=== PATIENT | female | born 1990 | race Caucasian/White ===

== ENCOUNTER 2018-05-21 00:22 | Emergency (ER) | payer MEDICAID ==
[~2018-05-21] VITALS: Ht 154.9 cm; Wt 54.3 kg
[~2018-05-21 00:22] MED LIST: DRON10CA PO; KLONIPIN PO
[2018-05-21] MEDS ORDERED: MULT-658 PO (00:45)
[2018-05-21 01:34] LABS: MEAN CORPUSCULAR HEMOGLOBIN 28.8 pg (27.0-34.8); MEAN CORPUSCULAR HGB CONC 33.4 g/dL (32.4-35.8); MEAN CORPUSCULAR VOLUME 86.3 fL (80-100); MEAN PLATELET VOLUME 11.1 fL (7.4-10.4); PLATELET COUNT 177 x10^3/uL (130-400); RED CELL DISTRIBUTION WIDTH 16.1 % (9.6-15.2)
[2018-05-21 01:42] LABS: ALANINE AMINOTRANSFERASE 27 U/L (12-78); ALBUMIN 3.7 g/dL (3.4-5.0); ANION GAP 4 mmol/L (5-15); CALCIUM 8.6 mg/dL (8.5-10.1); CHLORIDE 109 mmol/L (98-107); CREATININE 0.98 mg/dL (0.55-1.02)
--- NOTE | 2018-05-21 01:42 | NUR ---
LUNCH RN: PT PROVIDED WITH URINE CUP, ENCOURAGED TO GO TO RESTROOM, PT STATES "I JUST WENT BEFORE I GOT HERE". PT EDUCATED ON THE NEED FOR THE TEST AND HOW LONG IT TAKES TO GET THE RESULTS. WILL RECHECK IN A FEW MINUTES
[2018-05-21 01:44] LABS: ALKALINE PHOSPHATASE 81 U/L (45-117); BILIRUBIN,TOTAL 0.2 mg/dL (0.2-1.0); TOTAL PROTEIN 7.2 g/dL (6.4-8.2)
--- NOTE | 2018-05-21 01:52 | NUR ---
need iv for CT
--- NOTE | 2018-05-21 01:55 | NUR ---
KIRTI RN: IV ESTABLISHED FOR CT.
--- NOTE | 2018-05-21 02:17 | NUR ---
PT AT CT
[2018-05-21] MEDS ORDERED: OMNIPAQUE 350 MG/ML, 100ML BOTTLE ONE (02:18)
[2018-05-21 02:27] LABS: BASOPHILS % (AUTO) 1 % (0-1); EOSINOPHILS # (AUTO) 0.03 x10^3/uL (0-0.4); EOSINOPHILS % (AUTO) 0 % (1-7); LYMPHOCYTES # (AUTO) 1.82 x10^3/uL (1-3.4); LYMPHOCYTES % (AUTO) 10 % (22-44); MD SCAN; MONOCYTES # (AUTO) 0.78 x10^3/uL (0.2-0.8); MONOCYTES % (AUTO) 4 % (2-9); NEUTROPHILS # (AUTO) 15.86 x10^3/uL (1.8-6.8); NEUTROPHILS % (AUTO) 85 % (42-75)
[2018-05-21 03:00] LABS: HCG UR SG 1.044 (1.003-1.030); MICROSCOPIC AUTO
[2018-05-21 03:02] LABS: CULTURE INDICATED? NO
[2018-05-21 03:14] VITALS: BP 143/95
--- NOTE | 2018-05-21 03:30 | NUR ---
Patient given discharge instructions and they have confirmed that they understand the instructions. Patient ambulatory with steady gait.
== END 2018-05-21 03:36 | disposition home or self-care (01) ==
LOC: ED 03:30
DX: R10.13 Epigastric pain (principal); R19.7 Diarrhea, unspecified; R30.0 Dysuria
CPT/HCPCS: 36415; 74177; 80053; 81001; 81025; 83690; 85025; 99284; Q9967

== ENCOUNTER 2018-07-06 00:07 | Emergency (ER) | payer MEDICAID ==
[~2018-07-06] VITALS: Ht 154.9 cm; Wt 56.2 kg
[~2018-07-06 00:07] MED LIST changes: +MULT-658 PO
[2018-07-06 00:14] VITALS: BP 122/78
[2018-07-06 01:28] LABS: HCG UR SG 1.023 (1.003-1.030); MICROSCOPIC AUTO
[2018-07-06 01:29] LABS: CULTURE INDICATED? NO
[2018-07-06 01:42] LABS: BASOPHILS # (AUTO) 0.04 x10^3/uL (0-0.1); BASOPHILS % (AUTO) 0 % (0-1); EOSINOPHILS # (AUTO) 0.13 x10^3/uL (0-0.4); EOSINOPHILS % (AUTO) 1 % (1-7); LYMPHOCYTES # (AUTO) 2.99 x10^3/uL (1-3.4); LYMPHOCYTES % (AUTO) 30 % (22-44); MD NO; MEAN CORPUSCULAR HEMOGLOBIN 28.9 pg (27.0-34.8); MEAN CORPUSCULAR HGB CONC 33.7 g/dL (32.4-35.8); MEAN CORPUSCULAR VOLUME 85.8 fL (80-100); MEAN PLATELET VOLUME 10.8 fL (7.4-10.4); MONOCYTES % (AUTO) 7 % (2-9); NEUTROPHILS # (AUTO) 6.04 x10^3/uL (1.8-6.8); NEUTROPHILS % (AUTO) 61 % (42-75); PLATELET COUNT 149 x10^3/uL (130-400); RED BLOOD COUNT 3.98 x10^6/uL (3.82-5.3); RED CELL DISTRIBUTION WIDTH 16.1 % (9.6-15.2)
[2018-07-06 01:53] LABS: ALANINE AMINOTRANSFERASE 22 U/L (12-78); ALBUMIN 3.3 g/dL (3.4-5.0); ANION GAP 4 mmol/L (5-15); CALCIUM 8.1 mg/dL (8.5-10.1); CHLORIDE 111 mmol/L (98-107)
[2018-07-06 01:56] LABS: ALKALINE PHOSPHATASE 65 U/L (45-117); CREATININE 0.82 mg/dL (0.55-1.02)
[2018-07-06 02:00] LABS: BILIRUBIN,TOTAL < 0.1 mg/dL (0.2-1.0)
--- NOTE | 2018-07-06 02:40 | NUR ---
DC EDUCATION PROVIDED, PT DEMONSTRATES UNDERSTANDING. PT AMBULATED STEADILY TO DC WITH RN AND FRIENDS.
== END 2018-07-06 02:42 | disposition home or self-care (01) ==
LOC: ED 02:08
DX: R10.84 Generalized abdominal pain (principal); H60.501 Unspecified acute noninfective otitis externa, right ear; R10.32 Left lower quadrant pain
CPT/HCPCS: 36415; 80053; 81001; 81025; 83690; 85025; 99283

== ENCOUNTER 2018-11-24 11:35 | Emergency (ER) | payer MEDICAID ==
[~2018-11-24] VITALS: Ht 154.9 cm; Wt 50.5 kg
--- NOTE | 2018-11-24 11:50 | NUR ---
MD AT BEDSIDE TO ASSESS PT
[2018-11-24] MEDS ORDERED: HYDROcodone/APAP 5/325 TABLET PO ONE (12:00)
--- NOTE | 2018-11-24 12:02 | NUR ---
THIS IS A 28YO FEMALE THAT CAME IN FOR ANXIETY WITH CP AND ABD PAIN. PT IS SPEAKING IN FULL SENTENCES. PT REPORTS SMOKING METH AND MARIJUANA AROUND THE TIME THAT HER "PANIC ATTACK" STARTED. PT IS CONNECTED TO ALL MONITORS AT THIS TIME. VSS. CALL LIGHT IN REACH
[2018-11-24] MEDS ORDERED: HYDROcodone/APAP 5/325 TABLET ONE (12:07)
--- NOTE | 2018-11-24 12:12 | NUR ---
PT MEDICATED PER MAR. PT IS SITING ON Linqia AT THIS TIME. NO FURTHER NEEDS EXPRESSED
[2018-11-24 12:25] LABS: MEAN CORPUSCULAR HEMOGLOBIN 27.7 pg (27.0-34.8); MEAN CORPUSCULAR VOLUME 83.9 fL (80-100); MEAN PLATELET VOLUME 11.2 fL (7.4-10.4); PLATELET COUNT 181 x10^3/uL (130-400); RED BLOOD COUNT 4.48 x10^6/uL (3.82-5.3); RED CELL DISTRIBUTION WIDTH 17.1 % (9.6-15.2)
[2018-11-24 12:30] LABS: ALANINE AMINOTRANSFERASE 24 U/L (12-78); ALBUMIN 3.7 g/dL (3.4-5.0); ANION GAP 6 mmol/L (5-15); CALCIUM 8.8 mg/dL (8.5-10.1); CHLORIDE 106 mmol/L (98-107); CREATININE 1.01 mg/dL (0.55-1.02)
[2018-11-24 12:34] LABS: ALKALINE PHOSPHATASE 74 U/L (45-117); BILIRUBIN,TOTAL 0.4 mg/dL (0.2-1.0); TOTAL PROTEIN 7.1 g/dL (6.4-8.2); TROPONIN I < 0.015 ng/mL (0.000-0.045)
[2018-11-24 12:54] LABS: MD YES
[2018-11-24 12:59] LABS: BAND#(MANUAL) 0.07 x10^3/uL; BANDS%(MANUAL) 1 % (0-7); EOS#(MANUAL) 0.07 x10^3/uL (0.0-0.4); EOS% (MANUAL) 1 % (1-7); LYMPH#(MANUAL) 2.94 x10^3/uL (1-3.4); LYMPHS% (MANUAL) 42 % (22-44); MONOS#(MANUAL) 0.42 x10^3/uL (0.3-2.7); MONOS% (MANUAL) 6 % (2-9); SEGS% (MANUAL) 50 % (42-75)
[2018-11-24 13:00] LABS: <PLATELET ESTIMATE> ADEQUATE; HYPOCHROMIA 1+; LARGE PLATELETS 1+; MICROCYTOSIS 1+
--- NOTE | 2018-11-24 13:00 | NUR ---
ALL RESULTS BACK AT THIS TIME CHART UP FOR RECHECK, AWAITING FURTHER ORDERS
[2018-11-24 13:01] LABS: OVALOCYTES 1+
[2018-11-24 13:06] VITALS: BP 121/81
--- NOTE | 2018-11-24 13:22 | NUR ---
Patient/Caregiver given discharge instructions and they have confirmed that they understand the instructions. Patient ambulatory with steady gait.
== END 2018-11-24 13:23 | disposition home or self-care (01) ==
LOC: ED 13:21
DX: F41.1 Generalized anxiety disorder (principal); R07.89 Other chest pain
CPT/HCPCS: 36415; 71045; 80053; 84484; 85025; 93005; 99284

== ENCOUNTER 2019-02-16 17:02 | Emergency (ER) | payer MEDICAID ==
[~2019-02-16] VITALS: Ht 154.9 cm; Wt 51.0 kg
[2019-02-16 17:04] VITALS: BP 128/93
--- NOTE | 2019-02-16 17:34 | NUR ---
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
[2019-02-16] MEDS ORDERED: NITR100C6 PO (17:49)
--- NOTE | 2019-02-16 17:49 | NUR ---
Pt presents to ED with c/o pelvic pressure, vaginal pain, intermittent vaginal bleeding starting on February 11. Pt states she was seen at [facility] for these symptoms on 02/11 and was told she had a bladder infection and was given one dose of Macrobid there. Pt states, "I just filled the prescription from [facility] today. I am here today because this doesn't feel right, this feels like more." Pt states she was also treated for chlamydia and gonorrhea at [facility] on 02/11, and that she has history of chlamydia and gonorrhea "a couple of times". Pt states bleeding is intermittent and less than a pad or tampon an hour. Pt states, "I am concerned that I am loosing blood though and I am just not feeling well." Pt states daily methamphetamine use. Pt sitting on external grinder tender bed. Pt connected to NIBP cuff and continous pulse ox monitor. Call light within reach. NADN. No other needs expressed.
--- NOTE | 2019-02-16 18:28 | NUR ---
Pt states to clinical laboratory medical director, "I want to leave, I don't want to be poked or have the ultrasound, it is making me more anxious."
--- NOTE | 2019-02-16 18:32 | NUR ---
Pt states, "I have an appointment on March 03 (with OBGYN), I would rather just do all of this there with them." EDMD aware. Pt signed AMA paperwork. Pt left with yellow copy of AMA paperwork and all personal belongings. NADN. No other needs expressed.
== END 2019-02-16 18:36 | disposition left against medical advice (07) ==
LOC: ED 18:15
DX: N94.4 Primary dysmenorrhea (principal); F17.200 Nicotine dependence, unspecified, uncomplicated; Z72.89 Other problems related to lifestyle; Z90.49 Acquired absence of other specified parts of digestive tract
CPT/HCPCS: 99281

== ENCOUNTER 2020-08-19 19:53 | Emergency (ER) | payer SELFPAY ==
[~2020-08-19] VITALS: Ht 154.9 cm; Wt 51.0 kg
[~2020-08-19 19:53] MED LIST changes: +NITR100C6 PO
--- NOTE | 2020-08-19 20:28 | NUR ---
PT PRESENTS TO ED WITH CRAMPING, STABING PAIN IN LOWER RIGHT QUAD OF ABD. PT IN GOWN AND HOOKED TO ALL OF THE MONITORS. PT STATING SHE HAS NOT HAD NORMAL BOWEL MOVEMENTS FOR THE LAST 3 DAYS. PT'S ABD IS DISTENTED WITH TENDERNESS IN LOWER RIGHT QUAD. PT SITTING ON GURNEY.
--- NOTE | 2020-08-19 20:33 | NUR ---
ERP AT BEDSIDE
[2020-08-19] MEDS ORDERED: METHYLNALTREXONE 12 MG/0.6 ML SYR SQ ONE ×2 (20:52→21:00)
--- NOTE | 2020-08-19 21:00 | NUR ---
PT MEDICATED AND TAKEN FOR XRAY
[2020-08-19 21:11] LABS: BASOPHILS % (AUTO) 1 % (0-1); EOSINOPHILS % (AUTO) 1 % (1-7); LYMPHOCYTES % (AUTO) 40 % (22-44); MEAN CORPUSCULAR HEMOGLOBIN 29.9 pg (27.0-34.8); MEAN CORPUSCULAR HGB CONC 33.1 g/dL (32.4-35.8); MEAN PLATELET VOLUME 10.9 fL (7.4-10.4); MONOCYTES % (AUTO) 9 % (2-9); NEUTROPHILS % (AUTO) 50 % (42-75); PLATELET COUNT 118 x10^3/uL (130-400); RED BLOOD COUNT 4.38 x10^6/uL (3.82-5.3); RED CELL DISTRIBUTION WIDTH 14.2 % (9.6-15.2)
[2020-08-19 21:12] LABS: MD NO
[2020-08-19 21:16] LABS: ALANINE AMINOTRANSFERASE 25 U/L (12-78); ALBUMIN 3.3 g/dL (3.4-5.0); ANION GAP 4 mmol/L (5-15); CALCIUM 7.8 mg/dL (8.5-10.1); CHLORIDE 111 mmol/L (98-107); CREATININE 0.86 mg/dL (0.55-1.02)
[2020-08-19 21:21] LABS: ALKALINE PHOSPHATASE 55 U/L (45-117); BILIRUBIN,TOTAL 0.2 mg/dL (0.2-1.0); TOTAL PROTEIN 6.6 g/dL (6.4-8.2)
--- NOTE | 2020-08-19 22:10 | NUR ---
PT GAVE URINE SAMPLE, THIS RN TOOK SAMPLE DOWN TO LAB, PT RESTING ON TRAVIS, DENIES NEEDS AT THIS TIME
[2020-08-19 22:20] LABS: MICROSCOPIC AUTO
[2020-08-19 23:25] VITALS: BP 137/80
--- NOTE | 2020-08-19 23:25 | NUR ---
Patient given discharge instructions and they have confirmed that they understand the instructions. Patient ambulatory with steady gait.
== END 2020-08-19 23:48 | disposition home or self-care (01) ==
LOC: ED 20:39
DX: N30.00 Acute cystitis without hematuria (principal); R10.84 Generalized abdominal pain
CPT/HCPCS: 36415; 74021; 80053; 81001; 83690; 84703; 85025; 87077; 87086; 87186; 96372; 99284